=== PATIENT | female | born 1995 | race African-American/Black ===

== ENCOUNTER 2016-09-18 09:34 | Emergency (ER) | payer OTHER ==
[~2016-09-18] VITALS: Ht 162.6 cm; Wt 91.2 kg
[~2016-09-18 09:34] MED LIST: IBUP-1060 PO
[2016-09-18] MEDS ORDERED: LIDOCAINE 2% VISCOUS 15 ML SOLUTION. SWSW ONE (11:00)
[2016-09-18] MEDS ORDERED: ACETAMINOPHEN 500 MG TABLET PO ONE (11:00)
[2016-09-18] MEDS ORDERED: IBUPROFEN 800 MG TABLET. PO ONE (11:00)
--- NOTE | 2016-09-18 11:29 | RAD ---
Area fever. Aeration of symptoms 3 days. PA and lateral views of the chest were obtained. Comparison is made to an examination 11 months earlier. The heart and pulmonary vessels appear normal. The lungs are clear. There is no significant pleural fluid. There is no pneumothorax. A significant change compared to the prior exam is not seen. IMPRESSION: No acute or focal process. No significant change
[2016-09-18 11:57] LABS: NEGATIVE OBC STREP NEG; POSITIVE OBC STREP POS
[2016-09-18 12:05] VITALS: BP 141/65
--- NOTE | 2016-09-18 12:19 | PHYS DOC ---
Past Medical History Past Medical History: Other Additional Past Medical Histor: IRREGULAR HR Past Surgical History: No Surgical History Alcohol Use: None Drug Use: None Adult General Chief Complaint Chief Complaint: SORE THROAT HPI HPI Patient is a 21 year old female who presents with sore throat, coughing, nasal congestion, that began 4 days ago. Patient is also complaining of fever. Review of Systems Review of Systems Constitutional: fever Eyes: Denies change in visual acuity, redness, or eye pain [] HENT: congestion and sore throat [] Respiratory: cough Cardiovascular: No additional information not addressed in HPI [] GI: Denies abdominal pain, nausea, vomiting, bloody stools or diarrhea [] : Denies dysuria or hematuria [] Musculoskeletal: Denies back pain or joint pain [] Integument: Denies rash or skin lesions [] Neurologic: Denies headache, focal weakness or sensory changes [] Endocrine: Denies polyuria or polydipsia [] Current Medications Current Medications Current Medications Medications (Trade) Dose Ordered Sig/Yelena Start Time Stop Time Status Last Admin Dose Admin Acetaminophen (Tylenol) 1,000 mg 1X ONCE 09/18/16 11:00 09/18/16 11:01 DC 09/18/16 10:49 1,000 MG Ibuprofen (Motrin) 800 mg 1X ONCE 09/18/16 11:00 09/18/16 11:01 DC 09/18/16 10:49 800 MG Lidocaine HCl (Viscous Lidocaine) 15 ml 1X ONCE 09/18/16 11:00 09/18/16 11:01 DC 09/18/16 10:49 15 ML Allergies Allergies Allergies Coded Allergies Type Severity Reaction Last Updated Verified No Known Drug Allergies 07/08/13 No Physical Exam Physical Exam Constitutional: Well developed, well nourished, no acute distress, non-toxic appearance. [] HENT: Normocephalic, atraumatic, bilateral external ears normal, oropharynx moist, no oral exudates, nose normal. [] Eyes: PERRLA, EOMI, conjunctiva normal, no discharge. [] Neck: Normal range of motion, no tenderness, supple, no stridor. [] Cardiovascular:Heart rate regular rhythm, no murmur [] Lungs & Thorax: Bilateral breath sounds clear to auscultation [] Abdomen: Bowel sounds normal, soft, no tenderness, no masses, no pulsatile masses. [] Skin: Warm, dry, no erythema, no rash. [] Back: No tenderness, no CVA tenderness. [] Extremities: No tenderness, no cyanosis, no clubbing, ROM intact, no edema. [] Neurologic: Alert and oriented X 3, normal motor function, normal sensory function, no focal deficits noted. [] Psychologic: Affect normal, judgement normal, mood normal. [] Current Patient Data Vital Signs Vital Signs Date Time Temp Pulse Resp B/P (MAP) Pulse Ox O2 Delivery O2 Flow Rate FiO2 09/18/16 12:05 98.4 109 18 141/65 (90) 98 Room Air 98.4 Lab Values Laboratory Tests Test 09/18/16 10:35 Group A Streptococcus Rapid Negative (NEGATIVE) EKG EKG [] Radiology/Procedures Radiology/Procedures [] Course & Med Decision Making Course & Med Decision Making Pertinent Labs and Imaging studies reviewed. (See chart for details) Patient is in the ED with symptoms of upper respiratory infection including fever cough and running nose and sore throat. Temperature in the ED was 100 on arrival. Heart rate was 120s. She was given Tylenol, Motrin and we pushed fluids. Temperature has come down to 98.4 with a heart rate of 109. Patient does not appear septic. Negative rapid strep, chest x-ray interpreted by radiologist as negative for any acute findings. Patient's symptoms are viral. Discharged with instructions to take Tylenol, Motrin for fever. Instructed to push fluids. Follow-up with primary care doctor in 3-7 days. Dragon Disclaimer Dragon Disclaimer This electronic medical record was generated, in whole or in part, using a voice recognition dictation system. Departure Departure Impression: Primary Impression: Acute upper respiratory infection Additional Impressions: Viral pharyngitis Cough Tachycardia Fever Disposition: HOME, SELF-CARE Condition: STABLE Referrals: EDWIN MONTALVO APRN (PCP) follow up with your doctor in 3-7 days Patient Instructions: Cough, Adult, [id number], Fever, Adult, [id number], Upper Respiratory Infection, Adult, [id number], Viral Pharyngitis Additional Instructions: You were seen with symptoms consistent of an upper respiratory infection. Take Tylenol every 4 hours and Motrin every 6 hours. Push fluids. Maintain good hand hygiene. Rest. Follow-up with your doctor in 3-7 days. 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
== END 2016-09-18 12:31 | disposition home or self-care (01) ==
LOC: ER 09:34
DX: J06.9 Acute upper respiratory infection, unspecified (principal); J02.8 Acute pharyngitis due to other specified organisms; B97.89 Other viral agents as the cause of diseases classified elsewhere; R00.0 Tachycardia, unspecified
CPT/HCPCS: 71020; 87070; 87880; 99285-25

== ENCOUNTER 2016-11-24 19:31 | Emergency (ER) | payer OTHER ==
[~2016-11-24] VITALS: Ht 154.9 cm; Wt 97.1 kg
[2016-11-24 19:50] VITALS: BP 117/56
[2016-11-24 20:08] LABS: BILIRUBIN,URINE NEGATIVE (NEG); GLUCOSE,URINE NEGATIVE (NEG); NITRITE,URINE NEGATIVE (NEG); PH,URINE 6.5; PROTEIN,URINE NEGATIVE (NEG-TRACE)
[2016-11-24] MEDS ORDERED: LIDOCAINE 1% / SOD BICARB 8.4% 20 ML VIAL. IJ ONE ×2 (20:09→20:30)
[2016-11-24 20:16] LABS: BACTERIA,URINE MANY /HPF (0-FEW); RBC,URINE 0 /HPF (0-2); SQUAMOUS EPITHELIAL CELL,UR FEW /LPF; WBC,URINE 20-40 /HPF (0-4)
--- NOTE | 2016-11-24 20:26 | PHYS DOC ---
Past Medical History Past Medical History: No Pertinent History Additional Past Medical Histor: IRREGULAR HR Past Surgical History: No Surgical History Alcohol Use: None Drug Use: None Adult General Chief Complaint Chief Complaint: VAGINAL PROBLEM HPI HPI Patient is a 21 year old female presents to the emergency department stating she is having vaginal pain and discomfort. She states she's been having this for the last week or so. She denies any drainage or discharge coming from the site. She states that she was on Bactrim for urinary tract infection was called and was placed on Macrobid. Patient states she developed a yeast infection was 7 some white vaginal discharge at this time she says that discharge is nothing different than the yeast. Patient denies any fever, chills or any nausea vomiting. Review of Systems Review of Systems Constitutional: Denies fever or chills [] Eyes: Denies change in visual acuity, redness, or eye pain [] HENT: Denies nasal congestion or sore throat [] Respiratory: Denies cough or shortness of breath [] Cardiovascular: No additional information not addressed in HPI [] GI: Denies abdominal pain, nausea, vomiting, bloody stools or diarrhea [] : Denies dysuria or hematuria. Complain vaginal pain and discomfort Musculoskeletal: Denies back pain or joint pain [] Integument: Denies rash or skin lesions [] Neurologic: Denies headache, focal weakness or sensory changes [] Endocrine: Denies polyuria or polydipsia [] Current Medications Current Medications Current Medications Medications (Trade) Dose Ordered Sig/Yelena Start Time Stop Time Status Last Admin Dose Admin Lidocaine/Sodium Bicarbonate (Buffered Lidocaine 1%) 20 ml 1X ONCE 11/24/16 20:30 11/24/16 20:31 Allergies Allergies Allergies Coded Allergies Type Severity Reaction Last Updated Verified No Known Drug Allergies 07/08/13 No Physical Exam Physical Exam Constitutional: Well developed, well nourished, no acute distress, non-toxic appearance. [] HENT: Normocephalic, atraumatic, bilateral external ears normal, oropharynx moist, no oral exudates, nose normal. [] Eyes: PERRLA, EOMI, conjunctiva normal, no discharge. [] Neck: Normal range of motion, no tenderness, supple, no stridor. [] Cardiovascular:Heart rate regular rhythm, no murmur [] Lungs & Thorax: Bilateral breath sounds clear to auscultation [] Abdomen: Bowel sounds hypoactive, soft, no tenderness, no masses, no pulsatile masses. [] Skin: Warm, dry, no erythema, no rash. [] Back: No tenderness Extremities: No tenderness, no cyanosis, no clubbing, ROM intact, no edema. [] Neurologic: Alert and oriented X 3, normal motor function, normal sensory function, no focal deficits noted. [] Psychologic: Affect normal, judgement normal, mood normal. [] Perineal exam was completed with RN at bedside Kristi. Patient was noted to have a possible cyst. Current Patient Data Vital Signs Vital Signs Date Time Temp Pulse Resp B/P (MAP) Pulse Ox O2 Delivery O2 Flow Rate FiO2 11/24/16 19:50 98.7 95 20 117/56 (76) 98 Room Air 98.7 Lab Values Laboratory Tests Test 11/24/16 19:12 11/24/16 19:45 POC Urine HCG, Qualitative Hcg negative (Negative) Urine Collection Type Unknown Urine Color Yellow Urine Clarity Clear Urine pH 6.5 Urine Specific [place] 1.025 Urine Protein Negative mg/dL (NEG-TRACE) Urine Glucose (UA) Negative mg/dL (NEG) Urine Ketones (Stick) Negative mg/dL (NEG) Urine Blood Negative (NEG) Urine Nitrite Negative (NEG) Urine Bilirubin Negative (NEG) Urine Urobilinogen Dipstick 1.0 mg/dL (0.2 mg/dL) Urine Leukocyte Esterase Large (NEG) Urine RBC 0 /HPF (0-2) Urine WBC 20-40 /HPF (0-4) Urine Squamous Epithelial Cells Few /LPF Urine Bacteria Many /HPF (0-FEW) Urine Mucus Mod /LPF EKG EKG [] Radiology/Procedures Radiology/Procedures [] Course & Med Decision Making Course & Med Decision Making Pertinent Labs and Imaging studies reviewed. (See chart for details) Spoke with patient in regards to keeping the area clean and dry. Warm moist soaks to the area 4-5 times a day. Do not remove the packing for the next 2 days. Patient will be provided with hydrocodone for severe pain and discomfort. She was instructed this medication will cause drowsiness do not take any be alert and oriented. Patient will be placed back on Bactrim for ear infection area. Recommended following up with primary care physician or OPERATIONS ADVISOR in the next 3-5 days. Signs and symptoms to return back to emergency department has been provided. Patient isn't parent agrees with discharge instructions treatment regimens and follow-up recommendations. All questions and concerns was answered at patient's bedside. Patient will be provided with a work note for the next 2-3 days. [] Dragon Disclaimer Dragon Disclaimer This electronic medical record was generated, in whole or in part, using a voice recognition dictation system. Departure Departure Impression: Primary Impression: Bartholin's cyst Disposition: HOME, SELF-CARE Condition: STABLE Referrals: EDWIN MONTALVO APRN (PCP) Patient Instructions: Bartholin's Cyst and Abscess-Brief Additional Instructions: Activity as tolerated. Hydrocodone will cause drowsiness do not take any be alert and oriented. Bactrim as an antibiotic to help with infection. Take this medication as prescribed do not stop even though the area starts to feel better. Packing has been placed do not remove the packing for 2 days. Warm soaks to the area 4-5 times a day. Follow-up the primary care physician in next 3-5 days. Return back to emergency prior signs symptoms of become worse. Scripts Hydrocodone/Apap 5-325 (NORCO 5-325 TABLET) 1 Each Tablet 1 TAB PO PRN Q6HRS Y for PAIN, #20 TAB 0 Refills Prov: CASSY DAVIES APRN 11/24/16 Fluconazole (DIFLUCAN) 150 Mg Tablet 1 TAB PO ONCE, #1 TAB 1 Refill Prov: CASSY DAVIES APRN 11/24/16 Sulfamethoxazole/Trimethoprim (BACTRIM DS TABLET) 1 Each Tablet 1 TAB PO BID, #20 TAB Prov: CASSY DAVIES APRN 11/24/16 Incision and Drainage Incision and Drainage : Site: left lower vaginal lip Blade Size: 11 I & D Procedure: betadine prep Progress Vaginal area was cleaned with Betadine. Site was injected with 1% buffered lidocaine with approximately 6 mL. Site was incised with another for 11 blade with thick yellow drainage noted. Site was expressed with clear yellow drainage also noted. Site was packed with quarter-inch gauze. CASSY DAVIES APRN Nov 24, 2016 20:26
[2016-11-24] MEDS ORDERED: FLUC150T PO (20:28)
[2016-11-24] MEDS ORDERED: SULF1TAB24 PO (20:28)
[2016-11-24] MEDS ORDERED: HYDR-971 PO (20:28)
== END 2016-11-24 21:01 | disposition home or self-care (01) ==
LOC: ER 19:31
DX: N75.0 Cyst of Bartholin's gland (principal)
CPT/HCPCS: 56420; 81001; 81025; 87086; 99284-25

== ENCOUNTER → 2017-03-05 | Outpatient (CLI) | payer OTHER ==
[~2017-03-05] MED LIST changes: +FLUC150T PO; +HYDR-971 PO; +SULF1TAB24 PO
--- NOTE | 2017-03-05 15:50 | RAD ---
MRI of the cervical spine without contrast 03/05/2017 CLINICAL HISTORY: Neck pain which radiates down both arms with numbness and tingling in the left arm. TECHNIQUE: Unenhanced T1-weighted, T2-weighted and inversion recovery sagittal and gradient echo and T2-weighted axial images of the cervical spine were obtained. FINDINGS: Minimal lateral curvature of the cervical spine is seen convex to the right. There is straightening of the normal cervical lordosis. The morphology and signal characteristics of all the disks of the cervical spine are within normal limits. The marrow signal of the visualized bony structures is within normal limits. The cervical spinal cord is normal morphology, position, and signal characteristics. On the axial images no significant degenerative changes are seen involving the cervical disc spaces. No focal disc herniation is seen. No area of significant central spinal canal or neural foraminal stenosis is noted. IMPRESSION: Negative study. Electronically signed by: Srikanth Fraire MD (03/05/2017 3:47 PM) [id number]
== END | disposition home or self-care (01) ==
LOC: MRI 13:52
PROVIDERS: ATTEND Nurse Practitioner Family
DX: M54.2 Cervicalgia (principal); R20.0 Anesthesia of skin; R20.2 Paresthesia of skin
CPT/HCPCS: 72141

== ENCOUNTER 2017-05-09 17:56 | Emergency (ER) | payer OTHER ==
[2017-05-09] MEDS: ACETAMINOPHEN 500 MG TABLET PO ×2 (19:00)
== END 2017-05-09 18:59 | disposition home or self-care (01) ==
LOC: ER 18:59
DX: S16.1XXA Strain of muscle, fascia and tendon at neck level, initial encounter (principal); S00.512A Abrasion of oral cavity, initial encounter; V43.52XA Car driver injured in collision with other type car in traffic accident, initial encounter; Y93.I9 Activity, other involving external motion; Y92.410 Unspecified street and highway as the place of occurrence of the external cause; Y99.8 Other external cause status
CPT/HCPCS: 72040; 99284

== ENCOUNTER → 2019-01-12 | Outpatient (CLI) | payer OTHER ==
[2017-05-09 18:09] VITALS: BP 117/56
[~2019-01-12] MED LIST changes: +CYCL10TA2 PO; +HYDR-3164 PO; -HYDR-971 PO; +IBUP-1007 PO
--- NOTE | 2019-01-12 14:14 | RAD ---
Examination: BREAST RIGHT History: Pain. No palpable abnormality. Comparison/Correlation: None Findings: Ultrasound imaging of the right breast at the 12:00 region 2 cm from the nipple was performed. Breast parenchyma is grossly unremarkable with no evidence of mass lesion, cyst, or other suspicious finding. Skin surface at the site of reported pain is unremarkable. Impression: BI-RADS Category 1-negative. No suspicious finding. Clinical management is recommended in determining need for further assessment. Electronically signed by: Louie Jiang MD (01/12/2019 2:11 PM) [facility]
== END | disposition home or self-care (01) ==
LOC: US 14:26
PROVIDERS: ATTEND Nurse Practitioner Family
DX: N64.4 Mastodynia (principal)
CPT/HCPCS: 76641

== ENCOUNTER 2020-03-27 14:08 | Emergency (ER) | payer OTHER ==
[~2020-03-27] VITALS: Ht 154.9 cm; Wt 104.5 kg
[2020-03-27 14:28] VITALS: BP 141/66
[2020-03-27] MEDS ORDERED: METH4TAB2 PO (14:31)
[2020-03-27] MEDS ORDERED: AMOX500C PO (14:31)
--- NOTE | 2020-03-27 14:31 | PHYS DOC ---
Past Medical History Past Medical History: No Pertinent History Additional Past Medical Histor: IRREGULAR HR Past Surgical History: No Surgical History Smoking Status: Never Smoker Alcohol Use: None Drug Use: None General Adult EDM: Chief Complaint: HEADACHE HPI: HPI: Patient is a 25 year old female who presents with nasal congestion, right ear pain with mild fullness and intermittent eyes generalized headache for the last 3 days. Denies this being the worst headache she is ever had. States has been taking Aleve and it helps with her pain. She states it is a generalized headache at a 4 out of 10 at this time. Patient states she has not been taking any allergy or sinus medications. Patient denies chest pain, fever, abdominal pain, nausea, vomiting, diarrhea, fluids of breath, dizziness, syncope, numbness or tingling. Review of Systems: Review of Systems: Constitutional: Denies fever or chills. [] Eyes: Denies change in visual acuity. [] HENT: + nasal congestion or sore throat. + Right ear pain [] Respiratory: Denies cough or shortness of breath. [] Cardiovascular: Denies chest pain or edema. [] GI: Denies abdominal pain, nausea, vomiting, bloody stools or diarrhea. [] : Denies dysuria. [] Musculoskeletal: Denies back pain or joint pain. [] Integument: Denies rash. [] Neurologic: + headache, denies focal weakness or sensory changes. [] Endocrine: Denies polyuria or polydipsia. [] Lymphatic: Denies swollen glands. [] Psychiatric: Denies depression or anxiety. [] Heart Score: Risk Factors: Risk Factors: DM, Current or recent (<one month) smoker, HTN, HLP, family history of CAD, obesity. Risk Scores: Score 0 - 3: 2.5% MACE over next 6 weeks - Discharge Home Score 4 - 6: 20.3% MACE over next 6 weeks - Admit for Clinical Observation Score 7 - 10: 72.7% MACE over next 6 weeks - Early Invasive Strategies Allergies: Allergies: Allergies Coded Allergies Type Severity Reaction Last Updated Verified No Known Drug Allergies 07/08/13 No Physical Exam: PE: Constitutional: Well developed, well nourished, no acute distress, non-toxic appearance. [] HENT: Normocephalic, atraumatic, bilateral external ears normal, oropharynx moist, no oral exudates, nose normal. Right ear tender with examination and reddened. Tympanic intact. [] Eyes: PERRLA, EOMI, conjunctiva normal, no discharge. [] Neck: Normal range of motion, no tenderness, supple, no stridor. [] Cardiovascular:Heart rate regular rhythm, no murmur [] Lungs & Thorax: Bilateral breath sounds clear to auscultation [] Abdomen: Bowel sounds normal, soft, no tenderness, no masses, no pulsatile masses. [] Skin: Warm, dry, no erythema, no rash. [] Back: No tenderness, no CVA tenderness. [] Extremities: No tenderness, no cyanosis, no clubbing, ROM intact, no edema. [] Neurologic: Alert and oriented X 3, normal motor function, normal sensory function, no focal deficits noted. [] Psychologic: Affect normal, judgement normal, mood normal. [] EKG: EKG: [] Radiology/Procedures: Radiology/Procedures: [] Course & Med Decision Making: Course & Med Decision Making Pertinent Labs and Imaging studies reviewed. (See chart for details) See HPI. Right ear tympanic is tender with examination and reddened. Tympanic is intact. No sinus tenderness with palpation. Throat is pink without exudates or swelling. Ambulatory with a steady gait. Speaks in full complete sentences. Alert and oriented x4. Skin pink warm and dry. Afebrile. Patient states she will begin taking her sinus medication at home. I will place her on a Medrol Dosepak and amoxicillin. [] Dragon Disclaimer: Dragon Disclaimer: This electronic medical record was generated, in whole or in part, using a voice recognition dictation system. Departure Departure Impression: Primary Impression: Headache Qualified Codes: R51.9 - Headache, unspecified Additional Impression: Otitis media Qualified Codes: H66.001 - Acute suppurative otitis media without spontaneous rupture of ear drum, right ear Disposition: 01 DC HOME SELF CARE/HOMELESS Condition: STABLE Referrals: EDWIN MONTALVO APRN (PCP) Patient Instructions: Otitis Media, Adult, Sinus Headache Additional Instructions: Begin taking your allergy medicine every day. Drink plenty of fluids. Continue taking Tylenol or Aleve to help with your pain. Take other medications as prescribed. Scripts Amoxicillin (AMOXICILLIN) 500 Mg Capsule 1 CAP PO BID, #20 CAP Prov: CASSY MERCADO APRN 03/27/20 Methylprednisolone (MEDROL) 4 Mg Tab.ds.pk 1 PKG PO UD, #1 PKG Prov: CASSY MERCADO APRN 03/27/20 CASSY MERCADO APRN Mar 27, 2020 14:31
== END 2020-03-27 14:36 | disposition home or self-care (01) ==
LOC: ER 14:08
DX: H66.001 Acute suppurative otitis media without spontaneous rupture of ear drum, right ear (principal); R51.9 Headache, unspecified; R09.81 Nasal congestion
CPT/HCPCS: 99283

== ENCOUNTER 2020-09-27 17:27 | Emergency (ER) | payer OTHER ==
[~2020-09-27] VITALS: Ht 157.5 cm; Wt 110.4 kg
[~2020-09-27 17:27] MED LIST changes: +AMOX500C PO; +METH4TAB2 PO
[2020-09-27 19:31] VITALS: BP 153/88
== END 2020-09-27 19:51 | disposition left against medical advice (07) ==
LOC: ER 17:27
DX: H92.02 Otalgia, left ear (principal); Z53.21 Procedure and treatment not carried out due to patient leaving prior to being seen by health care provider

== ENCOUNTER 2020-09-28 20:39 | Emergency (ER) | payer OTHER ==
[2020-09-28 23:00] VITALS: BP 138/83
== END 2020-09-29 00:25 | disposition left against medical advice (07) ==
LOC: ER 20:39
DX: R51.9 Headache, unspecified (principal); Z53.21 Procedure and treatment not carried out due to patient leaving prior to being seen by health care provider